=== PATIENT | male | born 1975 | race Caucasian/White ===

== ENCOUNTER 2019-03-09 12:12 | Emergency (ER) | payer BC, SELFPAY ==
[2019-03-09 12:14] VITALS: BP 149/84; PULSE 92; RESP 17; TEMP 37.2; O2SAT 98; BMI 43.0
--- NOTE | 2019-03-09 12:57 | RAD_ITS ---
STUDY: X-RAY CHEST REASON FOR EXAM: Male, 44 years old. Cough. Chest congestion. TECHNIQUE: PA and lateral views of the chest. COMPARISON: None. FINDINGS: The lungs are clear and expanded. Scattered calcified granulomas. There is no demonstrated pleural abnormality. Normal size heart. Normal mediastinum and ana. Normal visualized pulmonary arteries. Normal visualized aortic arch and descending thoracic aorta. Normal visualized thoracic spine. Normal visualized ribs, clavicles, and shoulders. There is no demonstrated abnormality of the visualized soft tissue structures of the upper abdomen. RAD/Chest PA and Lateral IMPRESSION: No acute abnormality is seen. Electronically Signed: Og Flores, at 13:21 EDT , Service support ,
[2019-03-09] MEDS: Loratadine 10 MG Tablet PO (13:07)
[2019-03-09] MEDS: Oxymetazoline 0.05% 1 SPRAY SPRAY.BTL 2 SPRAY NASAL (13:09)
--- NOTE | 2019-03-09 14:02 | ED.DCSUM_ITS ---
- ER Visit Summary Date of Service: 03/09/19 Chief Complaint: Cough and congestion History of Present Illness: The patient is a 44 M with head and chest congestion for the past 4 days. Has been coughing up yellow sputum. States he occasionally has wheezing. Physical Examination: Vital signs are unremarkable. He is afebrile. Patient sitting upright in bed no acute distress. Head and neck examination reveals TMs to be clear bilaterally. He has mild posterior pharyngeal drainage. Uvula is midline. Heart is regular rate and rhythm. Lung sounds are clear. Abdomen soft nontender. Test Results: Two-view chest x-ray shows no acute abnormality. Emergency Department Course and Treatment: Patient was given Afrin and Claritin here. He will continue to use Mucinex and NyQuil at home. He is in a prescription for Tessalon to help control cough. I discussed with patient and spouse at bedside that his symptoms at this point are all viral and sibling to run their course, antibiotics will not be beneficial. Treatment Plan: [] Disposition: Discharge Impression: Viral URI This note was generated with [employer] dictation software. It may contain incorrect words, spelling, and punctuation that were not noted in review of the chart prior to signing ED Disposition - Plan for ED Patient: Disposition: Home or Assisted Living Instructions: ED URI Viral Prescriptions: Benzonatate [Tessalon Perle] 200 mg PO TID PRN PRN #20 capsule PRN Reason: Cough Referrals: Nixon Luong MD [Primary Care Provider] - 5-7 Days
[2019-03-09 14:11] VITALS: PULSE 94; RESP 17; TEMP 37.1; O2SAT 96
== END 2019-03-09 14:12 | disposition home or self-care (01) ==
PROVIDERS: Emergency Provider Emergency Medicine; Family Provider Family Medicine; PCP Family Medicine
DX: J06.9 Acute upper respiratory infection, unspecified (principal)
CPT/HCPCS: 71046; 99282

== ENCOUNTER → 2022-07-24 | Outpatient (CLI) | payer OTHER, SELFPAY ==
[2022-07-24 12:15] LABS: Thyroid Stim Hormone (TSH) 1.33 uIU/mL (0.358-3.74)
== END | disposition home or self-care (01) ==
LOC: LAB 10:54
PROVIDERS: Visit Provider Internal Medicine Cardiovascular Disease
DX: I47.1 Supraventricular tachycardia (principal)
CPT/HCPCS: 36415; 84443

== ENCOUNTER 2022-08-12 11:13 | Emergency (ER) | payer OTHER, SELFPAY ==
[2022-08-12 11:14] VITALS: BP 164/104; PULSE 81; RESP 18; TEMP 36.1; O2SAT 100; BMI 29.4
[2022-08-12] MEDS: Morphine 4 MG/ML Syringe IV (11:44)
[2022-08-12] MEDS: Ondansetron 4 MG/2 ML Vial IV (11:44)
[2022-08-12] MEDS: 0.9% Normal Saline 1,000 ML 1000 ML IV (11:45)
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
[2022-08-12 11:54] LABS: Bacteria 0 SEEN /hpf (None Seen); Mucous, Urine 0 SEEN /hpf (<or=2+); Red Blood Cells-Urine 0 SEEN /hpf (0-5); Squamous Epithelial Cells - UA 0 SEEN /hpf (0-5); White Blood Cells 0 SEEN /hpf (0-5)
[2022-08-12 11:55] LABS: Color, Urine Yellow (Yellow); Glucose, Dipstick Normal (Normal); Ketone-Dipstick Negative (Negative); Leukocyte Esterase-Dipstick Negative /ul (Negative); Nitrite-Dipstick Negative (Negative); Occult Blood-Urine 10 /ul (Negative); Protein-Dipstick 15 mg/dl (Negative); Urine Bilirubin Dipstick Negative (Negative); Urine Clarity Clear (Clear); Urine Urobilinogen Normal (Normal)
[2022-08-12 12:06] LABS: Absolute Lymphocyte Count 1.91 X10^3/uL (0.83-4.51); Absolute Neutrophil Count 3.8 X10^3/uL (2.0-7.7); Basophil# 0.04 X10^3/uL; Basophil% 0.6 % (0-1); Eosinophil# 0.16 X10^3/uL; Eosinophils% 2.4 % (0-5); Hematocrit 39.8 % (40-54); Hemoglobin 12.6 g/dL (13.0-16.5); Lymphocyte # 1.91 X10^3/ul (0.83-4.51); Mean Corp Hgb Conc 31.7 g/dL (32-36); Mean Corpuscular Hgb 27.6 pg (27.0-32.0); Mean Corpuscular Volume 87.1 fL (80-94); Mean Platelet Vol. 8.3 fl (6.2-12.0); Monocyte# 0.63 X10^3/uL; Monocyte% 9.6 % (0-10); NRBC Flagged by Analyzer 0 % (0-5); Neutrophil # 3.82 X10^3/uL (2.7-7.7); Neutrophil % 57.9 % (47-70); Platelet Count 324 K/mm3 (150-450); RBC Distribution Width CV 14.5 % (11.6-14.6); RBC Distribution Width SD 46.5 fl (35.1-43.9); Red Blood Count 4.57 M/mm3 (4.6-6.2); White Blood Count 6.6 K/mm3 (4.4-11.0)
[2022-08-12 12:08] LABS: Anion Gap 8 (5-15); BUN 22 mg/dL (7-18); BUN/Creat Ratio 23.7 RATIO (10-20); Calcium,Total 8.9 mg/dL (8.5-10.1); Chloride 107 mmol/L (98-107); Creatinine, Serum 0.93 mg/dL (0.70-1.30); EST Glomerular Filtration Rate 92 mL/min (>60); Est Glom Filt Rate - Afr Amer 111 mL/min (>60); Estimated Creatinine Clearance 99.21 ml/min; Glucose 103 mg/dL (74-106); Potassium 4.1 mmol/L (3.5-5.1); Sodium Level 140 mmol/L (136-145)
[2022-08-12 12:19] VITALS: BP 118/84; RESP 18; O2SAT 99
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
[2022-08-12 13:04] VITALS: BP 120/80; PULSE 71; RESP 18; O2SAT 100
== END 2022-08-12 13:06 | disposition home or self-care (01) ==
PROVIDERS: Nurse Practitioner; Emergency Provider Emergency Medicine; Visit Provider Emergency Medicine
DX: R10.812 Left upper quadrant abdominal tenderness (principal); R31.29 Other microscopic hematuria; G89.29 Other chronic pain; Z87.828 Personal history of other (healed) physical injury and trauma
CPT/HCPCS: 80048; 81001; 85025; 96361; 96374; 96375; 99283; J7030; A4216; J2405

== ENCOUNTER 2024-02-07 10:30 | Outpatient (RCR) | payer OTHER, SELFPAY ==
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
--- NOTE | 2024-04-15 15:28 | HP.PTDCSUM ---
Discharge Summary D/C summary: It has been my pleasure to treat WALLY BLOCK Jr. referred by Dr. Mario Alberto Antunez MD, with the diagnosis of dizzyness for a total of 3 visit(s). Discharge Date: 02/07/24 Please see the following information for a summary of their discharge status. Subjective Subjective: No spinning, balance feels significantly better but not quite 100%. If had to walk heel to toe it would be hard. No falls. Activities are normal. Steps without any effect.BD 8 reps daily without anyu issues. Overall Improvement % Improvement: 95 Objective Objective/Function: FGA is full and romberg is good, confidence is not quite 100% but has the abilities and no spinning lately. Goals Goal 1:: DHI score 10 or less Goal Progress: Goal Met Goal 2:: Get out of chair and sit up without hesitation or dizzyness Goal Progress: Goal Met Goal 3:: Abolish dizzyness 99% Goal Progress: 100% Goal 4:: FGA Goal Progress: Goal Met Plan Plan: d/c D/C Information d/c sentence: If there are questions or concerns regarding this patient's physical therapy, please feel free to call me at [phone]. Thank you for the referral of this patient. Sincerely, Nathaniel Velazquez, DPT, OCS, CSCS Balance/Gait/Functional tests Balance/Special Test Scores Functional Gait Assessment Score: 30 % Disability: 0 CATSIB Score (Max score 120 seconds): 120 Dizziness Score: 0 Improvement % Improvement: 95
== END 2024-02-07 19:00 | disposition home or self-care (01) ==
LOC: PT 10:30
PROVIDERS: Visit Provider Psychiatry & Neurology Neurology
DX: R42 Dizziness and giddiness (principal)
CPT/HCPCS: 97161; 97530